=== PATIENT | male | born 1990 | race African-American/Black ===

== ENCOUNTER 2020-11-13 10:00 | Emergency (ER) | payer OTHER ==
[~2020-11-13] VITALS: Ht 188 cm; Wt 135.2 kg
[2020-11-13 10:15] VITALS: BP_SYST 154
--- NOTE | 2020-11-13 10:20 | NUR ---
Pt. bib girlfriend with c/o pain to Right Knee, states friday night fell and hit it twice on stairs, no laceration or swelling but pain was "excrutiating", now pain 2/10 when at rest but up to 7/10 with movement.
--- NOTE | 2020-11-13 10:25 | NUR ---
ER at bedside examining patient.
--- NOTE | 2020-11-13 10:35 | NUR ---
Patient transported to radiology via wheelchair, accompanied by staff.
[2020-11-13] MEDS ORDERED: ACET-2634 PO (11:25)
--- NOTE | 2020-11-13 11:42 | NUR ---
knee immobilizer applied
--- NOTE | 2020-11-13 12:00 | NUR ---
Patient given written and verbal discharge instructions and verbalizes understanding. ER Dr. Verdin discussed with patient the results and treatment provided. Patient in stable condition. ID arm band removed. Rx of extra strenght tylenol given. Patient educated on pain management and to follow up with PMD. Pain Scale 2.Opportunity for questions provided and answered. Medication side effect fact sheet provided.
[2020-11-13 12:15] VITALS: BP_SYST 149
== END 2020-11-13 12:00 | disposition home or self-care (01) ==
LOC: SED 10:00 → UNDOADMIN 10:25 → STU 10:25 → SED 12:00
DX: S83.411A Sprain of medial collateral ligament of right knee, initial encounter (principal); X50.1XXA Overexertion from prolonged static or awkward postures, initial encounter; Y93.89 Activity, other specified; Y92.89 Other specified places as the place of occurrence of the external cause; Y99.8 Other external cause status
CPT/HCPCS: 73564; 99283